=== PATIENT | female | born 1955 | race Two or more races ===

== ENCOUNTER 2022-01-12 14:20 | Outpatient (CLI) | payer OTHER ==
[~2022-01-12 14:20] MED LIST: HYDRODIURIL12.5 MG; TENORMIN50 M1
== END 2022-01-12 14:35 | disposition home or self-care (01) ==
LOC: PPH VACUNA 14:20
PROVIDERS: ATTEND Emergency Medicine Pediatric Emergency Medicine
DX: Z23 Encounter for immunization (principal)